=== PATIENT | male | born 1945 | race Caucasian/White ===

== ENCOUNTER → 2017-09-21 | Outpatient (CLI) | payer MEDICARE, BC ==
[~2017-09-21] MED LIST: ASPIRIN 81M81 MG/TA2 PO; CENTRUM SILVER1 CTB PO; ECOTRIN325 MG PO; FERROUS SU325 MG/TAB PO; FOLIC ACID PO; LOPRESSOR 225 MG/TAB PO; LORTAB 7.5/5001 TAB PO; MICARDIS 40MG40 MG PO; NORCO 325 MG-7.1 TAB PO; THE MEDICINE S200 M2 PO; VITAMIN C500 MG PO; VITAMINC1000TA; Z-BEC1 TAB PO
== END ==
LOC: COL.RAD 10:24
DX: M19.012 Primary osteoarthritis, left shoulder (principal); M19.011 Primary osteoarthritis, right shoulder
CPT/HCPCS: J3301; Q9967